=== PATIENT | male | born 1995 | race African-American/Black ===

== ENCOUNTER 2022-08-14 00:41 | Emergency (ER) | payer OTHER ==
[~2022-08-14] VITALS: Ht 177.8 cm; Wt 99.8 kg
[2022-08-14 00:53] VITALS: BP_SYST 149
[2022-08-14] MEDS ORDERED: levETIRAcetam 1,000 MG in NS 90 ML IV ONE (01:00)
[2022-08-14] MEDS ORDERED: NACL 0.9% 1,000 ML IV ONE (01:00)
[2022-08-14] MEDS ORDERED: LORazepam 2 MG/ML VIAL IVP ONE ×2 (01:00→01:15)
[2022-08-14 02:26] LABS: BASOPHILS # (AUTO) 0.1 K/uL (0.0-0.2); BASOPHILS % (AUTO) 0.4 % (0.0-2.0); EOSINOPHILS % (AUTO) 0.1 % (0.0-4.0); HEMATOCRIT 45.1 % (36-54); HEMOGLOBIN 15.5 g/dL (14.0-18.0); LYMPHOCYTES # (AUTO) 1.9 K/uL (1.0-5.5); LYMPHOCYTES % (AUTO) 15.3 % (20.5-51.5); MEAN CORPUSCULAR HEMOGLOBIN 31 pg (27-31); MEAN CORPUSCULAR HGB CONC 34 % (32-36); MEAN CORPUSCULAR VOLUME 90 fL (79.0-98.0); MONOCYTES # (AUTO) 0.8 K/uL (0.0-1.0); MONOCYTES % (AUTO) 6.6 % (1.7-9.3); NEUTROPHILS # (AUTO) 9.8 K/uL (1.8-7.7); NEUTROPHILS % (AUTO) 77.6 % (40.0-70.0); PLATELET COUNT (AUTO) 284 K/uL (130-430); RED BLOOD CELL COUNT(AUTO) 4.98 MIL/uL (4.2-6.2); RED CELL DISTRIBUTION WIDTH 13.2 % (9.0-15.0); WHITE BLOOD COUNT (AUTO) 12.6 K/uL (4.8-10.8)
[2022-08-14 03:00] LABS: PROTHROMBIN TIME 10.4 SECS (9.5-12.5)
[2022-08-14 03:18] LABS: ANION GAP 9 (5-15); CHLORIDE 104 mmol/L (98-107); CREATININE 0.96 mg/dL (0.55-1.30); GLUCOSE 175 mg/dL (70-99); UREA NITROGEN, BLOOD 8 mg/dL (8-21)
[2022-08-14 03:26] LABS: ALANINE AMINOTRANSFERASE 28 U/L (12-78); ALBUMIN 3.8 g/dL (3.4-4.8); ASPARTATE AMINOTRANSFERASE 21 U/L (10-37); TOTAL BILIRUBIN 0.3 mg/dL (0.0-1.0); VALPROIC ACID 56 ug/mL (50-100)
[2022-08-14 03:50] LABS: BARBITURATE, URINE NEGATIVE (NEG <=200); BENZODIAZEPINE, URINE POSITIVE (NEG <=150); CANNABINOID, URINE POSITIVE (NEG <=50); COCAINE, URINE NEGATIVE (NEG <=150); METHAMPHETAMINES SCREEN,URINE NEGATIVE (NEG <=500); OPIATE, URINE NEGATIVE (NEG <=100); PHENCYCLIDINE SCREEN,URINE NEGATIVE (NEG <=25); UR TRICYCLIC ANTIDEPRESSANTS NEGATIVE (NEG <=300); URINE AMPHETAMINE NEGATIVE (NEG <=500); URINE METHADONE NEGATIVE (NEG <=200); URINE OXYCODONE SCREEN NEGATIVE (NEG <=100); URINE PROPOXYPHENE SCREEN NEGATIVE (NEG <=300)
[2022-08-14 04:38] LABS: ALCOHOL, BLOOD < 3 mg/dL (<10); GFR AFRICAN AMERICAN 123 mL/min (>90)
[2022-08-14 04:59] LABS: BILIRUBIN,URINE NEGATIVE (NEGATIVE); BLOOD, URINE NEGATIVE (NEGATIVE); CLARITY/URINE CLEAR (CLEAR); COLOR,URINE YELLOW (YELLOW); GLUCOSE,URINE 1+ (NEGATIVE); KETONES,URINE TRACE (NEGATIVE); LEUKOCYTE ESTERASE ,URINE NEGATIVE (NEGATIVE); NITRITE, URINE NEGATIVE (NEGATIVE); PROTEIN URINE NEGATIVE (NEGATIVE); UROBILINOGEN,URINE 0.2 (0.2-1.0)
[2022-08-14 06:29] VITALS: BP_SYST 117
[2022-08-14 06:34] LABS: BACTERIA,URINE FEW /HPF (None Seen); RBC,URINE NONE SEEN /HPF (0-3)
[2022-08-14] MEDS ORDERED: VALP250C3 PO (07:46)
[2022-08-14] MEDS ORDERED: VALPROIC ACID 250 MG CAPSULE (DEPAKENE) PO SCH (09:00)
== END 2022-08-14 11:42 | disposition home or self-care (01) ==
LOC: EDBD 00:41 → SED 00:41
DX: G40.901 Epilepsy, unspecified, not intractable, with status epilepticus (principal); F12.90 Cannabis use, unspecified, uncomplicated; Z79.899 Other long term (current) drug therapy
CPT/HCPCS: 99291; 96365; 71045; 96375; 80307; 80053; 82962; 80164; 85025; 85610; 85730; 87040; 84484; 36415; 93005; 83605; 81000; G0482; J1953; J2060; G0480; G0481